=== PATIENT | female | born 1935 | race Caucasian/White ===

== ENCOUNTER → 2019-05-15 | Outpatient (CLI) | payer MEDICARE, OTHER ==
[2016-10-28 10:40] VITALS: BP 122/63
[~2019-05-15] MED LIST: ALPR0.5T PO; PRED-220 PO; ZOLP5TAB PO
--- NOTE | 2019-05-15 16:57 | KCIC ---
MRI Brain without contrast History: New onset anxiety, memory loss, episodes of slurred speech Technique: Multiplanar, multisequential noncontrast MR imaging was performed of the brain. Comparison: None Findings: There is no evidence of recent infarct or cytotoxic edema. Ventricular size is within normal limits, mild supratentorial involutional change.There is no significant midline shift, intraaxial mass effect, or focal abnormal extra-axial fluid collection. There is scattered multifocal [id number] T2 and FLAIR hyperintense abnormality of the supratentorial parenchyma bilaterally greatest of the parietal periatrial white matter. 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 There is preservation of the major intracranial flow-voids at the skull base. There is moderate fluid in the right mastoid air cells. Cerebellar tonsils are normal in location. There is no significant abnormality of the pineal gland or pituitary gland. There is mucous retention cyst posterior sphenoid sinus about 1.5 cm transverse. There is preserved marrow signal of the clivus. Some heterogeneous decreased T1 signal of the олег which could be due to edema. There has been lens surgery bilaterally. Impression: 1. There is no evidence of recent infarct or intracranial mass effect. Scattered [id number] T2 and FLAIR hyperintense signal abnormality of the supratentorial parenchyma bilaterally is nonspecific, more commonly due to chronic microvascular ischemic disease in a patient this age. There is mild supratentorial involutional change. 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 2. There is moderate fluid in the right mastoid air cells, uncertain sterility. 3. There is nonspecific signal change of the odontoid process, possibly edema. Electronically signed by: Shay Black MD (05/15/2019 4:54 PM) [facility]
== END | disposition home or self-care (01) ==
LOC: KCIC MRI 16:08
PROVIDERS: ATTEND Family Medicine
DX: R47.1 Dysarthria and anarthria (principal)
CPT/HCPCS: 70551

== ENCOUNTER 2020-07-21 08:43 | Emergency (ER) | payer MEDICARE, OTHER ==
[~2020-07-21] VITALS: Ht 162.6 cm; Wt 37.0 kg
[2020-07-21] MEDS ORDERED: ALPRAZolam 0.25 MG TABLET PO ONE (09:15)
--- NOTE | 2020-07-21 09:17 | PHYS DOC ---
Past Medical History Past Medical History: Anxiety, COPD, Depression Past Surgical History: Appendectomy, Colectomy, Tonsillectomy Smoking Status: Former Smoker Alcohol Use: Sober Additional Information: PT REPORTS SHE STARTED AA IN 1977, WITH A FEW RELAPSES. PT DENIES RECENT ALCOHOL USE. Drug Use: None General Adult EDM: Chief Complaint: ANXIETY/PANIC ATTACK HPI: HPI: Patient is an 85 year old female with a history of anxiety and COPD who presents to the Emergency Room complaining of severe anxiety. Patient states she feels like giving up. This has been ongoing for awhile, but got worse yesterday. She states it is due to issues at her apartment building. Review of Systems: Review of Systems: General: Denies fever, chills, sweats, fatigue Eyes: Denies drainage, blurred vision, eye redness HENT: Denies rhinorrhea, sore throat, earache Respiratory: Denies cough, shortness of breath, wheezing Cardiac: Denies edema, palpitations, chest pain GI: Denies abdominal pain, Nausea, vomiting MSK: Denies back pain, neck pain Skin: Denies rash, jaundice Neuro: Denies headache, dizziness Psychiatric: Denies SI/HI. Reports anxiety Heart Score: Risk Factors: Risk Factors: DM, Current or recent (<one month) smoker, HTN, HLP, family history of CAD, obesity. Risk Scores: Score 0 - 3: 2.5% MACE over next 6 weeks - Discharge Home Score 4 - 6: 20.3% MACE over next 6 weeks - Admit for Clinical Observation Score 7 - 10: 72.7% MACE over next 6 weeks - Early Invasive Strategies Current Medications: Current Medications Medications (Trade) Dose Ordered Sig/Sonya Start Time Stop Time Status Last Admin Dose Admin Alprazolam (Xanax) 0.25 mg 1X ONCE 07/21/20 09:15 07/21/20 09:16 Allergies: Allergies: Allergies Coded Allergies Type Severity Reaction Last Updated Verified Penicillins Allergy Intermediate Hives 11/04/13 Yes Physical Exam: PE: General: Awake, alert, NAD. Well Nourished, well hydrated. Cooperative HEENT: Atraumatic, EOMI, PERRL, airway patent, moist oral mucosa Neck: Supple, trachea midline Respiratory: CTA bilaterally, normal effort, no wheezing/crackles CV: RRR, no murmur, cap refill <2 GI: Soft, nondistended, nontender, no masses MSK: No obvious deformities Skin: Warm, dry, intact Neuro: A&O x3, speech NL, sensory and motor grossly intact, no focal deficits Psych: Normal affect, normal mood, not suicidal or homicidal Current Patient Data: Vital Signs: Vital Signs Date Time Temp Pulse Resp B/P (MAP) Pulse Ox O2 Delivery O2 Flow Rate FiO2 07/21/20 08:54 97.7 80 18 137/65 (89) 97 Room Air 97.7 EKG: EKG: [] Radiology/Procedures: Radiology/Procedures: [] Course & Med Decision Making: Course & Med Decision Making Pertinent Labs and Imaging studies reviewed. (See chart for details) Patient is an 85-year-old female presents the emergency room complaining of anxiety. After long discussion patient made some vague comments about wanting to kill but not being strong enough to kill her self. The pat team was consulted. Patient denies being suicidal but does have depression. PAT team talked with patient's family who will control her medications and get her in to therapy and a primary care physician. Patient's test results and vitals while in the ED were fully reviewed and discussed with the patient. Patient is stable and at this time does not need admission to the hospital. We have discussed strict return precautions and the importance of following up with their Primary Care Physician. Patient stated understanding and was given an opportunity to ask any questions. Patient is in agreement with plan. Dragon Disclaimer: Dragon Disclaimer: This electronic medical record was generated, in whole or in part, using a voice recognition dictation system. Departure Departure Impression: Primary Impression: Anxiety Condition: STABLE Referrals: LINA SORIANO MD (PCP) Patient Instructions: Anxiety and Panic Attacks Scripts Alprazolam (XANAX) 0.25 Mg Tablet 0.25 MG PO PRN Q6HRS PRN for ANXIETY / AGITATION, #10 TAB 0 Refills Prov: LAUREN AUSTIN MD 07/21/20 Justicifation of Admission Dx: Justifications for Admission: Justification of Admission Dx: N/A LUAREN AUSTIN MD Jul 21, 2020 09:17
[2020-07-21] MEDS ORDERED: ALPR0.25 PO (12:03)
[2020-07-21 12:09] VITALS: BP 120/60
== END 2020-07-21 12:09 | disposition home or self-care (01) ==
LOC: ER 08:43
DX: F41.9 Anxiety disorder, unspecified (principal); J44.9 Chronic obstructive pulmonary disease, unspecified; F32.9 Major depressive disorder, single episode, unspecified; Z90.89 Acquired absence of other organs; Z87.891 Personal history of nicotine dependence; Z98.890 Other specified postprocedural states; Z88.0 Allergy status to penicillin
CPT/HCPCS: 99285